=== PATIENT | male | born 1940 | race Caucasian/White ===

== ENCOUNTER 2018-01-18 15:10 | Emergency (ER) | payer MEDICARE, OTHER ==
[~2018-01-18] VITALS: Ht 172.7 cm; Wt 87.2 kg
[2018-01-18 15:16] VITALS: BP 144/60
[2018-01-18] MEDS ORDERED: clindamycin 150mg capsule PO ONE (16:30)
[2018-01-18] MEDS ORDERED: LIDOcaine 1.5% w/epinephrine 1:200,000 5ml ampul IJ ONE (16:35)
[2018-01-18] MEDS ORDERED: TETanus/Pertussis (Acell)/Diphther VAC/PF (Tdap-Adult) 0.5ml syringe IM ONE (16:35)
[2018-01-18] MEDS ORDERED: CLIN150C8 PO (17:53)
== END 2018-01-18 18:15 | disposition home or self-care (01) ==
LOC: ER 15:11
DX: S92.421A Displaced fracture of distal phalanx of right great toe, initial encounter for closed fracture (principal); S91.201A Unspecified open wound of right great toe with damage to nail, initial encounter; I10 Essential (primary) hypertension; Z95.5 Presence of coronary angioplasty implant and graft; Z98.890 Other specified postprocedural states; Z91.040 Latex allergy status; Z88.1 Allergy status to other antibiotic agents; W22.03XA Walked into furniture, initial encounter; Y93.89 Activity, other specified; Y92.89 Other specified places as the place of occurrence of the external cause; Y99.9 Unspecified external cause status
CPT/HCPCS: 11730; 73660; 90471; 90715; 99284; J3490

== ENCOUNTER 2019-09-26 12:37 | Outpatient (CLI) | payer MEDICARE ==
[~2019-09-26] VITALS: Ht 172.7 cm; Wt 90.7 kg
[~2019-09-26 12:37] MED LIST: CLIN150C8 PO
[2019-09-26 13:06] LABS: TOTAL HEMOGLOBIN 13.5 G/dl (14.0-18.0)
[2019-09-26] MEDS ORDERED: albuterol 2.5 MG/3 ML nebule NEB PRN (13:20)
== END 2019-09-26 23:59 | disposition home or self-care (01) ==
LOC: RT 12:37
PROVIDERS: ATTEND Internal Medicine Pulmonary Disease
DX: R94.2 Abnormal results of pulmonary function studies (principal); J98.8 Other specified respiratory disorders; J98.4 Other disorders of lung; J44.9 Chronic obstructive pulmonary disease, unspecified
CPT/HCPCS: 85018; 94060; 94727; 94729; 94760